=== PATIENT | female | born 1980 | race Caucasian/White ===

== ENCOUNTER 2017-05-16 04:57 | Inpatient (IN) ==
[2017-05-16] MEDS ORDERED: LACTATED RINGERS 1,000 ML IV ONE (05:37)
[2017-05-16] MEDS ORDERED: CITRIC ACID/SODIUM CITRATE 30 ML UDCUP PO ONE (05:37)
[2017-05-16] MEDS ORDERED: ePHEDrine 50 MG/ML AMP IV PRN (05:37)
[2017-05-16] MEDS ORDERED: LACTATED RINGERS 500 ML IV PRN (05:37)
[2017-05-16] MEDS ORDERED: BUTORPHANOL 2 MG/ML VIAL IV PRN (05:37)
[2017-05-16] MEDS ORDERED: fentaNYL 2 MCG/ROPIV 0.2% EPID 150 ML EPIDURAL SCH (05:37)
[2017-05-16] MEDS ORDERED: FAMOTIDINE 20 MG/2 ML VIAL IV ONE (05:37)
[2017-05-16] MEDS ORDERED: hydrOXYzine HCL 25 MG/1 ML VIAL IM PRN (05:37)
[2017-05-16] MEDS ORDERED: diphenhydrAMINE 50 MG/1 ML VIAL IV PRN (05:37)
[2017-05-16] MEDS ORDERED: MEPERIDINE 50 MG/1 ML VIAL IV PRN (05:37)
[2017-05-16] MEDS ORDERED: ONDANSETRON 4 MG/2 ML VIAL IV PRN ×2 (05:37→11:40)
[2017-05-16] MEDS ORDERED: OXYTOCIN/LR 20 UNIT/1,000 ML BAG IV SCH (06:00)
[2017-05-16 06:40] LABS: Basophils % 0.3 % (0.0-0.8); Eosinophils # 0.1 10*3/uL (0.0-0.87); Eosinophils % 0.8 % (0.00-10.9); Hematocrit 34.4 VOL% (35.7-47.0); Hemoglobin 11.4 GM/DL (12.0-16.0); Immature Granulocytes % 0.6 %; Immature Granulocytes Absolute 0.04 #; Lymphocytes # 1.4 10*3/uL (1.4-4.0); Lymphocytes % 21.5 % (21.3-54.2); Mean Corpuscular HGB Conc 33.1 GM/DL (32-36); Mean Corpuscular Hemoglobin 30 PG (27-34); Mean Corpuscular Volume 89.6 FL (87-102); Mean Platelet Volume 12.6 FL (9.6-12.0); Monocytes # 0.6 10*3/uL (0.11-0.8); Monocytes % 8.7 % (1.7-12.7); Neutrophils # 4.4 10*3/uL (1.4-7.4); Neutrophils % 68.1 % (38.7-73.9); Platelet Count 135 T/CUMM (130-400); Red Blood Count 3.84 MC/CUMM (3.8-5.5); Red Cell Distribution Width 15.5 % (9.3-17.3); White Blood Count 6.5 T/CUMM (4-12)
[2017-05-16] MEDS: LACTATED RINGERS 1,000 ML IV SCH ×2 (06:40→09:43)
[2017-05-16 07:12] LABS: Alanine Aminotransferase 11 U/L (13-56); Albumin 2.1 G/DL (3.4-5.0); Alkaline Phosphatase 178 U/L (45-117); Aspartate Amino Transferase 16 U/L (0-37); Bilirubin,Total < 0.39 MG/DL (0.2-1.0); Blood Urea Nitrogen 4 MG/DL (7-18); Calcium 8.5 MG/DL (8.5-10.1); Glucose 73 MG/DL (74-106); Osmolality,Calculated 274.4 MOS/KG (273-304); Potassium 3.4 MMOL/L (3.5-5.1); Sodium 140 MMOL/L (136-145); Total Protein 5.2 G/DL (6.4-8.3)
[2017-05-16] MEDS ORDERED: LIDOCAINE 1% 50 ML VIAL ONE (11:18)
[2017-05-16] MEDS ORDERED: LANOLIN 50% CREAM 0.3 OZ TUBE TOP PRN (11:40)
[2017-05-16] MEDS ORDERED: HYDROCORTISONE 2.5% RECTAL CREAM 30 GM TUBE TOP PRN (11:40)
[2017-05-16] MEDS ORDERED: BENZOCAINE 20%/MENTHOL 0.5% SPRAY 56 GM CAN TOP PRN (11:40)
[2017-05-16] MEDS ORDERED: BISACODYL 10 MG SUPP RECTAL PRN (11:40)
[2017-05-16] MEDS ORDERED: ACETAMINOPHEN 325 MG TABLET PO PRN (11:40)
[2017-05-16] MEDS ORDERED: OXYTOCIN/LR 20 UNIT/1,000 ML BAG IV ONE (11:40)
[2017-05-16] MEDS ORDERED: DIPH/TET/ACEL PERT BOOSTER VACCINE 0.5 ML VIAL IM ONE (11:40)
[2017-05-16] MEDS ORDERED: MEASLES/MUMPS/RUBELLA VACCINE 0.5 ML VIAL SUBCUT ONE (11:40)
[2017-05-16] MEDS ORDERED: oxyCODONE/ACETAMINOPHEN 5-325 MG TABLET PO PRN ×2 (11:40)
[2017-05-16] MEDS ORDERED: RHO(D) IMMUNE GLOBULIN 300 MCG SYRINGE IM ONE (11:40)
[2017-05-16] MEDS ORDERED: WITCH HAZEL PADS 100/JAR TOP PRN (11:40)
[2017-05-16] MEDS ORDERED: ACETAMINOPHEN/CODEINE 300-30 MG TABLET PO PRN (14:07)
[2017-05-16] MEDS: DOCUSATE SODIUM 100 MG CAPSULE PO SCH (21:08)
[2017-05-17 07:00] LABS: Basophils % 0.4 % (0.0-0.8); Eosinophils # 0.2 10*3/uL (0.0-0.87); Eosinophils % 1.8 % (0.00-10.9); Hemoglobin 11.9 GM/DL (12.0-16.0); Immature Granulocytes % 0.5 %; Immature Granulocytes Absolute 0.05 #; Lymphocytes # 2.1 10*3/uL (1.4-4.0); Lymphocytes % 20.9 % (21.3-54.2); Mean Corpuscular HGB Conc 33.1 GM/DL (32-36); Mean Corpuscular Hemoglobin 30 PG (27-34); Mean Corpuscular Volume 90.5 FL (87-102); Monocytes # 0.8 10*3/uL (0.11-0.8); Monocytes % 8.1 % (1.7-12.7); Neutrophils # 6.7 10*3/uL (1.4-7.4); Neutrophils % 68.3 % (38.7-73.9); Platelet Count 138 T/CUMM (130-400); Red Blood Count 3.98 MC/CUMM (3.8-5.5); Red Cell Distribution Width 15.8 % (9.3-17.3); White Blood Count 9.8 T/CUMM (4-12)
[2017-05-17] MEDS: MULTIVITAMIN (PRENATAL) TABLET PO SCH (08:45)
[2017-05-17] MEDS: DOCUSATE SODIUM 100 MG CAPSULE PO SCH ×2 (08:45→21:23)
[2017-05-17] MEDS: IBUPROFEN 800 MG TABLET PO PRN ×2 (08:51)
[2017-05-17] MEDS ORDERED: RHO(D) IMMUNE GLOBULIN 300 MCG SYRINGE IM ONE (17:58)
[2017-05-18 07:22] VITALS: BP 130/72
[2017-05-18] MEDS: DOCUSATE SODIUM 100 MG CAPSULE PO SCH (09:55)
[2017-05-18] MEDS: MULTIVITAMIN (PRENATAL) TABLET PO SCH (09:55)
[2017-05-18] MEDS ORDERED: INFLUENZA VIRUS VACCINE 0.5 ML SYRINGE IM ONE (10:13)
== END 2017-05-18 10:55 | disposition home or self-care (01) | DRG 775 ==
LOC: N.LDOUT 05:08 → N.LD 05:11 → N.OB 13:56
PROVIDERS: ADMIT Specialist; ATTEND Specialist